=== PATIENT | male | born 1990 | race Caucasian/White ===

== ENCOUNTER 2024-04-10 11:52 | Outpatient (OUT) | payer MEDICARE, MEDICAID, SELFPAY ==
--- NOTE | 2024-04-10 12:07 | US_ITS ---
[facility] [id number] Patient Name: DELMIS ROOT MRN: [id number] date: 1990 Sex: M Assigned Patient Location: LAB Current Patient Location: LAB Accession/Order Number: [id number] Exam Date: 04/10/2024 12:10 Report Date: 04/10/2024 13:05 At the request of: TANISHA RAMAN Procedure: US right upper quadrant EXAM: US right upper quadrant HISTORY: right upper quadrant pain COMPARISON: None. TECHNIQUE: Grayscale, color and Doppler FINDINGS: The liver is normal in size and contour. Increased hepatic echotexture suggesting steatosis. Areas of focal fatty sparing at the gallbladder fossa. Hepatopedal flow in the main portal vein with a velocity of 35 cm/s. The gallbladder is normal in size. The gallbladder wall measures 1.9 mm. Negative sonographic Lovelace sign. The common bile duct measures 6.3 mm, upper limits of normal. The visualized pancreas is normal The right kidney measures 9.3 x 5.1 x 5.0 cm. 5 mm echogenic focus lower pole, nonobstructing nephrolith. No hydronephrosis or solid mass US/US right upper quadrant IMPRESSION: Hepatic steatosis Electronically authenticated by: JOHN PAUL MASTERS Date: 04/10/2024 13:05
[2024-04-10 12:08] LABS: Basophils Percent Auto 0.2 % (0.2-2.0); Eosinophils Absolute Auto 0.1 10^3/uL (0.0-0.7); Eosinophils Percent Auto 0.3 % (0.9-7.0); Hematocrit 40.9 % (42.0-54.0); Hemoglobin 14.4 g/dL (14.0-18.0); Immature Granulocytes Abs Auto 0.04 10^3/uL (0.00-0.03); Immature Granulocytes Pct Auto 0.2 % (0.0-0.5); Lymphocytes Absolute Auto 1.3 10^3/uL (1.2-3.8); Lymphocytes Percent Auto 7.3 % (20.5-60.0); Mean Corpuscular HGB Conc 35.2 g/dL (29.9-35.2); Mean Corpuscular Hemoglobin 30.7 pg (25.9-34.0); Mean Corpuscular Volume 87.2 fL (80.0-94.0); Mean Platelet Volume 10.6 fL (9.5-13.5); Monocytes Absolute Auto 1.3 10^3/uL (0.3-0.8); Monocytes Percent Auto 7.2 % (1.7-12.0); Neutrophils Absolute Auto 15.6 10^3/uL (1.4-6.5); Neutrophils Percent Auto 84.8 % (43.0-75.0); Platelet Count 274 10^3/uL (150-450); Red Blood Count 4.69 10^6/uL (4.70-6.10); Red Cell Distribution Width 12.7 % (11.0-15.0); White Blood Count 18.4 10^3/uL (4.0-11.0)
--- NOTE | 2024-04-10 12:16 | US_ITS ---
[address] [address] Patient Name: DELMIS ROOT MRN: [id number] date: 1990 Sex: M Assigned Patient Location: LAB Current Patient Location: LAB Accession/Order Number: [id number] Exam Date: 04/10/2024 12:18 Report Date: 04/10/2024 13:06 At the request of: TANISHA RAMAN Procedure: US appendix EXAM: US appendix HISTORY: Right lower quadrant COMPARISON: None. TECHNIQUE: A scale and color ultrasound FINDINGS: Identified in the right lower quadrant is a tubular structure in the area the patient's pain measuring 4.6 x 1.2 x 1.4 cm. No fluid is observed. US/US appendix IMPRESSION: Possible enlarged appendix in the right lower quadrant. CT scan follow-up is recommended Electronically authenticated by: JOHN PAUL MASTERS Date: 04/10/2024 13:06
[2024-04-10 14:41] LABS: Alanine Aminotransferase 37 U/L (16-63); Albumin Globulin Ratio 1.3; Alkaline Phosphatase 88 U/L (46-116); Amylase 51 U/L (25-115); Anion Gap 9.4; Aspartate Amino Transferase 19 U/L (15-37); BUN Creatinine Ratio 10.9; Calcium 9.2 mg/dL (8.5-10.1); Carbon Dioxide 28.1 mmol/L (21.0-32.0); Chloride 100 mmol/L (98-107); Estimated GFR (African America >60 (>=60); Estimated GFR (Non-African Ame >60 (>=60); Globulin 3.2 g/dL; Glucose 120 mg/dL (74-106); Potassium 3.5 mmol/L (3.5-5.1); Sodium 134 mmol/L (136-145); Total Protein 7.2 g/dL (6.4-8.2)
== END 2024-04-10 11:53 | disposition home or self-care (01) ==
PROVIDERS: PCP Nurse Practitioner; Visit Provider Nurse Practitioner
DX: R10.11 Right upper quadrant pain (principal); R10.31 Right lower quadrant pain; K76.0 Fatty (change of) liver, not elsewhere classified
CPT/HCPCS: 36415; 76705; 80053; 82150; 83690; 85025